=== PATIENT | male | born 1960 | race African-American/Black ===

== ENCOUNTER 2017-06-04 10:56 | Emergency (ER) | payer BC ==
[2017-06-04 11:07] VITALS: BP 122/79; PULSE 72; TEMP 98.1; BMI 31.4
[2017-06-04] MEDS ORDERED: IBUPROFEN 600 MG TABLET (FP) PO ONE ×2 (12:17→12:18)
[2017-06-04] MEDS ORDERED: SULFAMETHOXAZOLE/TRIMETHOPRIM 800MG/160MG D.S. TABLET ONE (12:18)
[2017-06-04] MEDS ORDERED: SULFAMETHOXAZOLE/TRIMETHOPRIM 800MG/160MG D.S. TABLET PO ONE (12:18)
--- NOTE | 2017-06-04 12:18 | PDOC ---
History of Present Illness - General Chief Complaint: Abscess Boil Stated Complaint: ABSCESS ON LT AXILLA Time Seen by Provider: 06/04/17 11:50 History Source: Patient Exam Limitations: No Limitations - History of Present Illness Initial Comments: 06/04/17 12:13 [facility] came for evaluation and treatment for left axillary abscess. States had an abscess same on right arm and is concerned about type of cologne that he uses and feels is possibly related. Patient states onset of this swelling and tenderness was 2 days ago and is progressively worsened. Denies fever, denies any drainage from that site. 06/04/17 12:22 Timing/Duration: reports: just prior to arrival, getting worse Location: reports: torso (left axilla) Respiratory Risk Factors: reports: no cause identified Associated Symptoms: reports: denies symptoms Past History - Travel Traveled outside of the country in the last 30 days: No Close contact w/someone who was outside of country & ill: No - Past Medical History Allergies/Adverse Reactions: Allergies Allergy/AdvReac Type Severity Reaction Status Date / Time No Known Allergies Allergy Verified 06/04/17 11:07 Home Medications: Ambulatory Orders Amlodipine/Atorvastatin [Amlodipine-Atorvast 10-10 mg] 06/04/17 Ibuprofen 600 mg PO Q6H PRN #30 tablet 06/04/17 Oxycodone HCl/Acetaminophen [Percocet 5-325 mg Tablet] 1 tab PO Q6H #8 tablet MDD 4 06/04/17 Sulfamethoxazole/Trimethoprim [Bactrim *Ds*] 1 each PO BID #14 tablet 06/04/17 HTN: Yes - Surgical History Abdominal Surgery: Yes (Hernia Repair) - Suicide/Smoking/Psychosocial Hx Smoking History: Current some day smoker Have you smoked in the past 12 months: Yes Number of Cigarettes Smoked Daily: 2 Information on smoking cessation initiated: Yes 'Breaking Loose' booklet given: 06/04/17 Hx Alcohol Use: No Drug/Substance Use Hx: No Substance Use Type: None Review of Systems - Review of Systems Able to Perform ROS?: Yes Is the patient limited Gambian proficient: Yes Constitutional: Yes: Symptoms Reported, See HPI HEENTM: No: Symptoms Reported Respiratory: No: Symptoms reported Musculoskeletal: No: Symptoms Reported Integumentary: Yes: Symptoms Reported, See HPI, Lesions All Other Systems: Reviewed and Negative *Physical Exam - Vital Signs Last Vital Signs Temp Pulse Resp BP Pulse Ox 98.1 F 72 16 122/79 99 06/04/17 11:03 06/04/17 11:03 06/04/17 11:03 06/04/17 11:03 06/04/17 11:03 - Physical Exam General Appearance: Yes: Nourished, Appropriately Dressed, Mild Distress HEENT: positive: VIVEK, Normal ENT Inspection, Normal Voice, TMs Normal, Pharynx Normal Neck: positive: Supple. negative: Lymphadenopathy (R), Lymphadenopathy (L) Respiratory/Chest: positive: Lungs Clear Extremity: positive: Normal Capillary Refill, Normal Inspection, Normal Range of Motion Integumentary: positive: Dry, Warm, Swelling (erythematous lesion with central abscess approximately 1 cm and pointing. 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 Packing placed and started on Bactrim after culture sent. And #8 Percocet sent *DC/Admit/Observation/Transfer Diagnosis at time of Disposition: Abscess - Discharge Dispostion Disposition: HOME Condition at time of disposition: Stable Admit: No - Patient Instructions Printed Discharge Instructions: DI for Incision and Drainage of a Skin Abscess Additional Instructions: Rest, keep area elevated. Avoid strenuous activity or exercise until wound is healed Use hot soaks to area to bring more blood to the surface and encourage drainage May change dressings as needed to keep clean - trying to avoid removal of packing for 2 days. If packing needs to be changed, return to emergency department or with your followup physician for wound care and evaluation and repacking as needed If packing needs to be removed, then in 2 days, while in the shower remove dressing and quickly pull the packing taken out. Allow water from shower to wash area thoroughly for 2-3 minutes, and pat dry upon exit of shower and replace dressing. Change his dressing daily until the wound is completely healed. May use Tylenol or Motrin for mild pain relief Use stronger medications as directed and prescribed Continue all medications as prescribed Followup with private physician in 2-3 days for wound check Return to emergency Department for worsening swelling, pain, redness, fevers as needed - Post Discharge Activity Forms/Work/School Notes: Back to Work
== END 2017-06-04 12:24 | disposition home or self-care (01) ==
LOC: JERFT 10:56
PROC: 0X953ZZ Drainage of Left Axilla, Percutaneous Approach (ICD-10-PCS; principal; 2017-06-04)
DX: L02.412 Cutaneous abscess of left axilla (principal); I10 Essential (primary) hypertension
CPT/HCPCS: 87070; 87186; 87205; 99281-25

== ENCOUNTER 2021-02-25 12:05 | Emergency (ER) | payer BC, OTHER ==
[2021-02-25 12:22] VITALS: BP 184/105; PULSE 76; TEMP 98.1; BMI 29.9
[2021-02-25] MEDS ORDERED: amLODIPine BESYLATE 5 MG TABLET (FP) PO ONE (12:57)
[2021-02-25] MEDS ORDERED: amLODIPine BESYLATE 5 MG TABLET (FP) ONE (13:00)
[2021-02-25 13:11] LABS: COCAINE, UR NEGATIVE (NEGATIVE); METHADONE, UR NEGATIVE (NEGATIVE); OPIATES, URI NEGATIVE (NEGATIVE); PHENCYCLIDINE,URINE NEGATIVE (NEGATIVE); URINE AMPHETAMINES NEGATIVE (NEGATIVE); URINE BARBITURATES NEGATIVE (NEGATIVE); URINE BENZODIAZEPINES NEGATIVE (NEGATIVE)
== END 2021-02-25 14:15 | disposition home or self-care (01) ==
LOC: JERFT 12:05
DX: Z02.1 Encounter for pre-employment examination (principal)
CPT/HCPCS: 80307; 99283-25

== ENCOUNTER 2021-09-14 11:03 | Emergency (ER) | payer OTHER ==
[2021-09-14 11:15] VITALS: BP 155/97; PULSE 82; TEMP 97.9; BMI 31.1
[2021-09-14] MEDS ORDERED: LIDOCAINE 5% TOPICAL PATCH TP ONE (11:44)
[2021-09-14] MEDS ORDERED: LIDOCAINE 5% TOPICAL PATCH ONE (11:46)
[2021-09-14] MEDS ORDERED: LIDOCAINE PATCH REMOVAL MC SCH (22:00)
== END 2021-09-14 12:26 | disposition home or self-care (01) ==
LOC: JERFT 11:03
DX: S49.92XA Unspecified injury of left shoulder and upper arm, initial encounter (principal); X50.0XXA Overexertion from strenuous movement or load, initial encounter
CPT/HCPCS: 73030-TC-LT-FY; 99283-25